=== PATIENT | female | born 1955 | race Caucasian/White ===

== ENCOUNTER 2022-12-05 08:27 | Inpatient (IN) | payer OTHER ==
[~2022-12-05] VITALS: Ht 167.6 cm; Wt 72.6 kg
[~2022-12-05 08:27] MED LIST: BUPIVACAINE /PF 0.25% 30 ML VIAL INJ ONE; CEFAZOLIN 2 GM IVPB PREMIX 50 ML IV ONE; DEXAMETHASONE SOD PHOSPHATE 4 MG/ML VIAL ONE; HYDROmorphone 2 MG/ML VIAL ONE; LR 1,000 ML IV.SOLN IV ONE; MIDAZOLAM HCL 5 MG/ML VIAL (VERSED) IV ONE; NS IRRIG SOLN 1000 ML IR ONE; PROPOFOL 200MG/ 20ML VIAL (DIPRIVAN) IV ONE; ROCURONIUM BROMIDE 10 MG/ML (ZEMURON) ONE; SEVOFLURANE 15 MIN GAS INH ONE; SUCCINYLCHOLINE CHLORIDE 20 MG/ML(QUELICIN) ONE; SUGAMMADEX SODIUM 200 MG/2 ML VIAL IV ONE; ePHEDrine sulfate 50 MG/ML VIAL ONE
[2022-12-05 08:35] VITALS: BP_SYST 141; PULSE 83; RESP 20; TEMP 98.3; O2SAT 98
[2022-12-05] MEDS ORDERED: ONDANSETRON HCL 4 MG/2 ML VIAL IVP ONE (09:00)
[2022-12-05] MEDS ORDERED: fentaNYL CITRATE/PF 100 MCG/2 ML AMP IVP ONE ×2 (09:00→12:00)
[2022-12-05 09:42] LABS: BASOPHILS % (AUTO) 0.3 % (0.0-2.0); EOSINOPHILS % (AUTO) 0.1 % (0.0-4.0); HEMATOCRIT 44.3 % (36-48); HEMOGLOBIN 14.9 g/dL (12.0-16.0); LYMPHOCYTES # (AUTO) 1.9 K/uL (1.0-5.5); LYMPHOCYTES % (AUTO) 13.5 % (20.5-51.5); MEAN CORPUSCULAR HEMOGLOBIN 31 pg (27-31); MEAN CORPUSCULAR HGB CONC 34 % (32-36); MEAN CORPUSCULAR VOLUME 91 fL (79.0-98.0); MONOCYTES # (AUTO) 0.6 K/uL (0.0-1.0); MONOCYTES % (AUTO) 4.3 % (1.7-9.3); NEUTROPHILS # (AUTO) 11.2 K/uL (1.8-7.7); NEUTROPHILS % (AUTO) 81.8 % (40.0-70.0); PLATELET COUNT (AUTO) 272 K/uL (130-430); RED BLOOD CELL COUNT(AUTO) 4.85 MIL/uL (4.2-6.2); RED CELL DISTRIBUTION WIDTH 12.6 % (9.0-15.0); WHITE BLOOD COUNT (AUTO) 13.7 K/uL (4.8-10.8)
[2022-12-05] MEDS ORDERED: NACL 0.9% 1,000 ML IV ONE (10:00)
[2022-12-05 10:01] LABS: ALBUMIN 4.4 g/dL (3.4-4.8); CALCIUM 8.8 mg/dL (8.4-11.0); CREATININE 0.94 mg/dL (0.55-1.30); TOTAL BILIRUBIN 0.8 mg/dL (0.0-1.0); TOTAL PROTEIN, SERUM 8.3 g/dL (6.4-8.3)
[2022-12-05] MEDS ORDERED: KCL 40 mEq in 100 mL (PREMIX) 100 ML IV ONE (11:00)
[2022-12-05] MEDS ORDERED: KCL 20 mEq in 100 mL (PREMIX) 200 ML IV ONE (11:04)
[2022-12-05] MEDS ORDERED: KCL 20 mEq in 100 mL (PREMIX) 100 ML IV ONE ×2 (11:15→13:15)
[2022-12-05] MEDS ORDERED: ZOLPIDEM TARTRATE 5 MG TABLET PO PRN (12:45)
[2022-12-05] MEDS ORDERED: MAGNESIUM SULFATE 50 ML IV PRN (12:45)
[2022-12-05] MEDS ORDERED: ONDANSETRON HCL 4 MG/2 ML VIAL IVP PRN (12:45)
[2022-12-05] MEDS ORDERED: KETOROLAC TROMETHAMINE 15 MG VIAL IVP PRN (12:45)
[2022-12-05] MEDS ORDERED: MUPIROCIN 2% TOPICAL OINTMENT 22 GM NS PRN (12:45)
[2022-12-05] MEDS ORDERED: LORazepam 2 MG/ML VIAL IVP PRN (12:45)
[2022-12-05] MEDS ORDERED: ACETAMINOPHEN 325 MG TABLET PO PRN ×3 (12:45→13:15)
[2022-12-05] MEDS ORDERED: DOCUSATE SODIUM 100 MG CAPSULE PO PRN (12:45)
[2022-12-05] MEDS ORDERED: KETOROLAC TROMETHAMINE 30 MG VIAL ONE (14:19)
[2022-12-05 17:00] VITALS: BP_SYST 158; PULSE 75; RESP 18; TEMP 98.1
[2022-12-05] MEDS ORDERED: METO25TA3 PO (17:36)
[2022-12-05] MEDS ORDERED: NORT75CA PO (17:36)
[2022-12-05] MEDS ORDERED: PANT20TA2 PO (17:36)
[2022-12-05] MEDS ORDERED: LEVO100T PO (17:37)
[2022-12-05] MEDS ORDERED: LINA290C PO (17:37)
[2022-12-05] MEDS: D5NS 1,000 ML IV SCH (18:46)
[2022-12-05 20:03] LABS: BASOPHILS # (AUTO) 0.1 K/uL (0.0-0.2); BASOPHILS % (AUTO) 0.6 % (0.0-2.0); EOSINOPHILS # (AUTO) 0.1 K/uL (0.0-0.4); EOSINOPHILS % (AUTO) 0.9 % (0.0-4.0); HEMATOCRIT 40.2 % (36-48); HEMOGLOBIN 13.4 g/dL (12.0-16.0); LYMPHOCYTES # (AUTO) 3.8 K/uL (1.0-5.5); LYMPHOCYTES % (AUTO) 32.1 % (20.5-51.5); MEAN CORPUSCULAR HEMOGLOBIN 31 pg (27-31); MEAN CORPUSCULAR HGB CONC 33 % (32-36); MEAN CORPUSCULAR VOLUME 92 fL (79.0-98.0); MONOCYTES # (AUTO) 0.7 K/uL (0.0-1.0); MONOCYTES % (AUTO) 6.1 % (1.7-9.3); NEUTROPHILS # (AUTO) 7.2 K/uL (1.8-7.7); NEUTROPHILS % (AUTO) 60.3 % (40.0-70.0); PLATELET COUNT (AUTO) 232 K/uL (130-430); RED BLOOD CELL COUNT(AUTO) 4.37 MIL/uL (4.2-6.2); RED CELL DISTRIBUTION WIDTH 12.8 % (9.0-15.0)
[2022-12-05 20:24] LABS: ALBUMIN 3.7 g/dL (3.4-4.8); CALCIUM 7.7 mg/dL (8.4-11.0); CREATININE 0.85 mg/dL (0.55-1.30); POTASSIUM 3.7 mmol/L (3.5-5.1); TOTAL BILIRUBIN 0.7 mg/dL (0.0-1.0); TOTAL PROTEIN, SERUM 7.2 g/dL (6.4-8.3)
[2022-12-05] MEDS ORDERED: HYDROmorphone 2 MG/ML VIAL ONE (20:43)
[2022-12-05] MEDS ORDERED: MIDAZOLAM HCL 2 MG/2 ML VIAL (VERSED) ONE (20:44)
[2022-12-05] MEDS ORDERED: HEPARIN SODIUM,PORCINE 5,000 UNITS/ML VIAL SUBCUT SCH (21:00)
[2022-12-06] VITALS (18 sets, daily range): BP systolic 102–137; PULSE 83–98; RESP 10–28; TEMP 97–101.1; O2SAT 94–99
[2022-12-06] MEDS ORDERED: NALOXONE HCL 0.4 MG/ML AMP (NARCAN) IVP PRN (01:00)
[2022-12-06] MEDS ORDERED: HYDROmorphone 1 MG/ML INJ. CARTRIDGE ONE (01:08)
[2022-12-06] MEDS ORDERED: ACETAMINOPHEN I.V. 1000 MG 100 ML IV ONE ×2 (01:09→01:15)
[2022-12-06] MEDS: HYDROmorphone 1 MG/ML INJ. CARTRIDGE IVP PRN ×7 (01:11→21:16)
[2022-12-06] MEDS ORDERED: ONDANSETRON HCL 4 MG/2 ML VIAL IVP PRN (01:15)
[2022-12-06] MEDS ORDERED: HYDROmorphone 2 MG/ML VIAL ONE (03:30)
[2022-12-06] MEDS: D5NS 1,000 ML IV SCH ×2 (03:39→14:44)
[2022-12-06 05:08] LABS: BASOPHILS % (AUTO) 0.1 % (0.0-2.0); HEMATOCRIT 37.1 % (36-48); HEMOGLOBIN 12.3 g/dL (12.0-16.0); LYMPHOCYTES # (AUTO) 0.6 K/uL (1.0-5.5); LYMPHOCYTES % (AUTO) 3.8 % (20.5-51.5); MEAN CORPUSCULAR HEMOGLOBIN 31 pg (27-31); MEAN CORPUSCULAR HGB CONC 33 % (32-36); MEAN CORPUSCULAR VOLUME 93 fL (79.0-98.0); MONOCYTES # (AUTO) 1.2 K/uL (0.0-1.0); MONOCYTES % (AUTO) 7.2 % (1.7-9.3); NEUTROPHILS # (AUTO) 14.7 K/uL (1.8-7.7); NEUTROPHILS % (AUTO) 88.9 % (40.0-70.0); PLATELET COUNT (AUTO) 249 K/uL (130-430); RED BLOOD CELL COUNT(AUTO) 3.99 MIL/uL (4.2-6.2); RED CELL DISTRIBUTION WIDTH 12.7 % (9.0-15.0); WHITE BLOOD COUNT (AUTO) 16.5 K/uL (4.8-10.8)
[2022-12-06 05:28] LABS: CALCIUM 7.2 mg/dL (8.4-11.0); CREATININE 1.01 mg/dL (0.55-1.30)
[2022-12-06] MEDS: PIPERACILLIN/TAZO 3.375/DEX-IS 50 ML IV SCH ×3 (10:51→23:06)
[2022-12-06 11:37] LABS: PROTHROMBIN TIME 10.7 SECS (9.5-12.5)
[2022-12-06] MEDS: MORPHINE 4 MG INJ. 4 MG/ML VIAL IVP PRN (16:54)
[2022-12-06] MEDS ORDERED: GASTROGRAFIN 120 ML ONE (18:57)
[2022-12-06] MEDS ORDERED: TPN PERIPHERAL IV SCH ×6 (21:00)
[2022-12-06] MEDS ORDERED: *TPN PER PHARMACY XX PRN (21:00)
[2022-12-06] MEDS ORDERED: TRACE ELEMENTS IV SCH ×6 (21:00)
[2022-12-06] MEDS ORDERED: MAGNESIUM SULFATE IV SCH ×6 (21:00)
[2022-12-06] MEDS ORDERED: MVI IV SCH ×6 (21:00)
[2022-12-06] MEDS ORDERED: [UNRECOGNIZED DRUG - OTHER] IV SCH ×6 (21:00)
[2022-12-07 00:11] VITALS: BP_SYST 121; PULSE 96; RESP 18; TEMP 99.6; O2SAT 99
[2022-12-07] MEDS: D5NS 1,000 ML IV SCH ×2 (01:41→14:45)
[2022-12-07] MEDS: HYDROmorphone 1 MG/ML INJ. CARTRIDGE IVP PRN (01:41)
[2022-12-07 04:49] LABS: BASOPHILS # (AUTO) 0.1 K/uL (0.0-0.2); BASOPHILS % (AUTO) 0.5 % (0.0-2.0); EOSINOPHILS % (AUTO) 0.5 % (0.0-4.0); HEMATOCRIT 32.4 % (36-48); HEMOGLOBIN 10.7 g/dL (12.0-16.0); LYMPHOCYTES # (AUTO) 1.7 K/uL (1.0-5.5); LYMPHOCYTES % (AUTO) 17.4 % (20.5-51.5); MEAN CORPUSCULAR HEMOGLOBIN 31 pg (27-31); MEAN CORPUSCULAR HGB CONC 33 % (32-36); MEAN CORPUSCULAR VOLUME 94 fL (79.0-98.0); MONOCYTES % (AUTO) 9.9 % (1.7-9.3); NEUTROPHILS # (AUTO) 7.1 K/uL (1.8-7.7); NEUTROPHILS % (AUTO) 71.7 % (40.0-70.0); PLATELET COUNT (AUTO) 183 K/uL (130-430); RED BLOOD CELL COUNT(AUTO) 3.44 MIL/uL (4.2-6.2); RED CELL DISTRIBUTION WIDTH 13.2 % (9.0-15.0); WHITE BLOOD COUNT (AUTO) 9.9 K/uL (4.8-10.8)
[2022-12-07 05:09] LABS: ALBUMIN 2.9 g/dL (3.4-4.8); CALCIUM 7.1 mg/dL (8.4-11.0); CREATININE 0.82 mg/dL (0.55-1.30); PHOSPHORUS 2.7 mg/dL (2.7-4.5); POTASSIUM 4.3 mmol/L (3.5-5.1); TOTAL BILIRUBIN 0.8 mg/dL (0.0-1.0); TOTAL PROTEIN, SERUM 6.2 g/dL (6.4-8.3)
[2022-12-07] MEDS: PIPERACILLIN/TAZO 3.375/DEX-IS 50 ML IV SCH ×4 (05:09→22:08)
[2022-12-07] MEDS: MORPHINE 4 MG INJ. 4 MG/ML VIAL IVP PRN ×5 (07:51→22:08)
[2022-12-07 08:00] VITALS: BP_SYST 147; PULSE 96; RESP 18; TEMP 99.2; O2SAT 97
[2022-12-07] MEDS: ENOXAPARIN SODIUM 30 MG/0.3 ML SYRINGE SUBCUT SCH (09:48)
[2022-12-07 12:29] VITALS: BP_SYST 136; PULSE 95; RESP 19; TEMP 99; O2SAT 99
[2022-12-07] MEDS ORDERED: MORPHINE 2 MG/ML INJ. SYRINGE IVP PRN (14:00)
[2022-12-07 16:50] VITALS: BP_SYST 139; PULSE 95; RESP 18; TEMP 99.1; O2SAT 98
[2022-12-07] MEDS ORDERED: HEPARIN IV FLUSH 300 UNITS/3ML SYR IV ONE (19:15)
[2022-12-07 19:30] VITALS: BP_SYST 141; PULSE 92; RESP 18; TEMP 99.1; O2SAT 98
[2022-12-07] MEDS ORDERED: TPN PERIPHERAL IV SCH ×7 (21:00)
[2022-12-07] MEDS ORDERED: MAGNESIUM SULFATE IV SCH ×7 (21:00)
[2022-12-07] MEDS ORDERED: [UNRECOGNIZED DRUG - OTHER] IV SCH ×7 (21:00)
[2022-12-07] MEDS ORDERED: NA PHOS IV SCH ×7 (21:00)
[2022-12-07] MEDS ORDERED: MVI IV SCH ×7 (21:00)
[2022-12-08 00:42] VITALS: BP_SYST 140; PULSE 82; RESP 16; TEMP 98.2; O2SAT 98
[2022-12-08] MEDS: MORPHINE 4 MG INJ. 4 MG/ML VIAL IVP PRN ×6 (01:41→23:06)
[2022-12-08] MEDS: PIPERACILLIN/TAZO 3.375/DEX-IS 50 ML IV SCH ×4 (04:09→22:45)
[2022-12-08] MEDS: D5NS 1,000 ML IV SCH ×3 (04:09→22:45)
[2022-12-08 06:33] LABS: BASOPHILS # (AUTO) 0.1 K/uL (0.0-0.2); BASOPHILS % (AUTO) 0.5 % (0.0-2.0); EOSINOPHILS # (AUTO) 0.2 K/uL (0.0-0.4); EOSINOPHILS % (AUTO) 1.9 % (0.0-4.0); HEMATOCRIT 31.1 % (36-48); HEMOGLOBIN 10.7 g/dL (12.0-16.0); LYMPHOCYTES % (AUTO) 19.2 % (20.5-51.5); MEAN CORPUSCULAR HEMOGLOBIN 32 pg (27-31); MEAN CORPUSCULAR HGB CONC 34 % (32-36); MEAN CORPUSCULAR VOLUME 93 fL (79.0-98.0); MONOCYTES # (AUTO) 0.8 K/uL (0.0-1.0); MONOCYTES % (AUTO) 7.9 % (1.7-9.3); NEUTROPHILS # (AUTO) 7.5 K/uL (1.8-7.7); NEUTROPHILS % (AUTO) 70.5 % (40.0-70.0); PLATELET COUNT (AUTO) 164 K/uL (130-430); RED BLOOD CELL COUNT(AUTO) 3.36 MIL/uL (4.2-6.2); RED CELL DISTRIBUTION WIDTH 12.9 % (9.0-15.0); WHITE BLOOD COUNT (AUTO) 10.6 K/uL (4.8-10.8)
[2022-12-08 06:54] LABS: CALCIUM 7.1 mg/dL (8.4-11.0); CREATININE 0.66 mg/dL (0.55-1.30); PHOSPHORUS 1.9 mg/dL (2.7-4.5); POTASSIUM 3.2 mmol/L (3.5-5.1)
[2022-12-08 08:00] VITALS: BP_SYST 143; PULSE 87; RESP 17; TEMP 97.8; O2SAT 96
[2022-12-08] MEDS: ENOXAPARIN SODIUM 30 MG/0.3 ML SYRINGE SUBCUT SCH (09:19)
[2022-12-08] MEDS ORDERED: POTASSIUM CHLORIDE 40 MEQ in NS 250 ML IV ONE (11:30)
[2022-12-08 12:22] VITALS: BP_SYST 138; PULSE 85; RESP 17; TEMP 98.5; O2SAT 98
[2022-12-08] MEDS: POTASSIUM CHLORIDE 20 mEq in 100 mL (PREMIX) 100 ML x 2 doses IV SCH ×2 (12:45→14:47)
[2022-12-08 16:40] VITALS: BP_SYST 140; PULSE 86; RESP 16; TEMP 98.2; O2SAT 97
[2022-12-08 20:00] VITALS: BP_SYST 132; PULSE 83; RESP 16; TEMP 98.3; O2SAT 96
[2022-12-08] MEDS ORDERED: [UNRECOGNIZED DRUG - OTHER] IV SCH ×9 (21:00)
[2022-12-08] MEDS ORDERED: TPN PERIPHERAL IV SCH ×9 (21:00)
[2022-12-08] MEDS ORDERED: SODIUM CHLORIDE IV SCH ×9 (21:00)
[2022-12-08] MEDS ORDERED: K PHOS IV SCH ×9 (21:00)
[2022-12-08] MEDS: FAT EMULSIONS 250 ML IV SCH (22:23)
[2022-12-09] VITALS: BP_SYST 137; PULSE 81; RESP 16; TEMP 98.2; O2SAT 94
[2022-12-09] MEDS: PIPERACILLIN/TAZO 3.375/DEX-IS 50 ML IV SCH ×4 (05:07→22:15)
[2022-12-09] MEDS: MORPHINE 4 MG INJ. 4 MG/ML VIAL IVP PRN ×4 (05:08→23:03)
[2022-12-09 05:53] LABS: BASOPHILS # (AUTO) 0.1 K/uL (0.0-0.2); EOSINOPHILS # (AUTO) 0.4 K/uL (0.0-0.4); EOSINOPHILS % (AUTO) 5.1 % (0.0-4.0); HEMATOCRIT 30.1 % (36-48); HEMOGLOBIN 10.2 g/dL (12.0-16.0); LYMPHOCYTES # (AUTO) 1.6 K/uL (1.0-5.5); LYMPHOCYTES % (AUTO) 21.8 % (20.5-51.5); MEAN CORPUSCULAR HEMOGLOBIN 31 pg (27-31); MEAN CORPUSCULAR HGB CONC 34 % (32-36); MEAN CORPUSCULAR VOLUME 92 fL (79.0-98.0); MONOCYTES # (AUTO) 0.6 K/uL (0.0-1.0); MONOCYTES % (AUTO) 7.8 % (1.7-9.3); NEUTROPHILS # (AUTO) 4.8 K/uL (1.8-7.7); NEUTROPHILS % (AUTO) 64.3 % (40.0-70.0); PLATELET COUNT (AUTO) 199 K/uL (130-430); RED BLOOD CELL COUNT(AUTO) 3.28 MIL/uL (4.2-6.2); RED CELL DISTRIBUTION WIDTH 12.3 % (9.0-15.0); WHITE BLOOD COUNT (AUTO) 7.5 K/uL (4.8-10.8)
[2022-12-09 06:35] LABS: ALBUMIN 2.5 g/dL (3.4-4.8); CALCIUM 7.1 mg/dL (8.4-11.0); CREATININE 0.66 mg/dL (0.55-1.30); PHOSPHORUS 1.8 mg/dL (2.7-4.5); POTASSIUM 3.1 mmol/L (3.5-5.1); TOTAL BILIRUBIN 0.6 mg/dL (0.0-1.0); TOTAL PROTEIN, SERUM 6.1 g/dL (6.4-8.3)
[2022-12-09 08:00] VITALS: BP_SYST 122; PULSE 77; RESP 17; TEMP 98.1; O2SAT 95
[2022-12-09] MEDS ORDERED: NON-FORMULARY MEDICATION (Linaclotide (Linzess) 290 MCG) PO SCH (09:00)
[2022-12-09] MEDS: METOPROLOL SUCCINATE 25 MG TAB.SR.24H (TOPROL XL) PO SCH (09:34)
[2022-12-09] MEDS: ENOXAPARIN SODIUM 30 MG/0.3 ML SYRINGE SUBCUT SCH (09:35)
[2022-12-09 10:07] VITALS: BP_SYST 122; PULSE 77; O2SAT 95
[2022-12-09] MEDS ORDERED: NORT50CA PO (10:42)
[2022-12-09] MEDS ORDERED: PANTOPRAZOLE SODIUM 40 MG TAB PO ONE (11:30)
[2022-12-09] MEDS: D5NS 1,000 ML IV SCH (11:33)
[2022-12-09 12:00] VITALS: BP_SYST 127; PULSE 70; RESP 18; TEMP 97.7; O2SAT 97
[2022-12-09] MEDS: LIDOCAINE/PRILOCAINE 5 GM CREAM (EMLA) TP SCH ×3 (15:00→20:28)
[2022-12-09] MEDS: POTASSIUM CHLORIDE 20 MEQ TAB.PRT.SR PO PRN (15:33)
[2022-12-09 16:00] VITALS: BP_SYST 135; PULSE 78; RESP 18; TEMP 98; O2SAT 98
[2022-12-09] MEDS ORDERED: BENZOCAINE/MENTHOL 1 EACH LOZENGE MM PRN (19:00)
[2022-12-09 20:00] VITALS: BP_SYST 131; PULSE 68; RESP 18; TEMP 98.5; O2SAT 94
[2022-12-09] MEDS: NORTRIPTYLINE HCL 25 MG CAPSULE PO SCH (20:28)
[2022-12-09] MEDS ORDERED: SODIUM CHLORIDE IV SCH ×10 (21:00)
[2022-12-09] MEDS ORDERED: [UNRECOGNIZED DRUG - OTHER] IV SCH ×10 (21:00)
[2022-12-09] MEDS ORDERED: POTASSIUM CHLORIDE IV SCH ×10 (21:00)
[2022-12-09] MEDS ORDERED: TPN PERIPHERAL IV SCH ×10 (21:00)
[2022-12-09] MEDS ORDERED: POTASSIUM CHLORIDE 20 MEQ TAB.PRT.SR PO ONE (22:00)
[2022-12-09] MEDS: FAT EMULSIONS 250 ML IV SCH (22:19)
[2022-12-10 00:50] VITALS: BP_SYST 131; PULSE 68; RESP 18; TEMP 98.5; O2SAT 94
[2022-12-10 01:00] VITALS: BP_SYST 156; PULSE 76; RESP 18; TEMP 99.1; O2SAT 94
[2022-12-10] MEDS: D5NS 1,000 ML IV SCH ×2 (03:12→17:08)
[2022-12-10] MEDS: PIPERACILLIN/TAZO 3.375/DEX-IS 50 ML IV SCH ×4 (04:49→23:30)
[2022-12-10] MEDS: MORPHINE 4 MG INJ. 4 MG/ML VIAL IVP PRN ×3 (04:49→21:51)
[2022-12-10 06:06] LABS: BASOPHILS % (AUTO) 0.7 % (0.0-2.0); EOSINOPHILS # (AUTO) 0.4 K/uL (0.0-0.4); EOSINOPHILS % (AUTO) 6.2 % (0.0-4.0); HEMATOCRIT 29.8 % (36-48); HEMOGLOBIN 10.1 g/dL (12.0-16.0); LYMPHOCYTES # (AUTO) 1.3 K/uL (1.0-5.5); LYMPHOCYTES % (AUTO) 19.9 % (20.5-51.5); MEAN CORPUSCULAR HEMOGLOBIN 31 pg (27-31); MEAN CORPUSCULAR HGB CONC 34 % (32-36); MEAN CORPUSCULAR VOLUME 92 fL (79.0-98.0); MONOCYTES # (AUTO) 0.7 K/uL (0.0-1.0); MONOCYTES % (AUTO) 10.5 % (1.7-9.3); NEUTROPHILS # (AUTO) 4.2 K/uL (1.8-7.7); NEUTROPHILS % (AUTO) 62.7 % (40.0-70.0); PLATELET COUNT (AUTO) 215 K/uL (130-430); RED BLOOD CELL COUNT(AUTO) 3.25 MIL/uL (4.2-6.2); RED CELL DISTRIBUTION WIDTH 12.4 % (9.0-15.0); WHITE BLOOD COUNT (AUTO) 6.7 K/uL (4.8-10.8)
[2022-12-10] MEDS: LEVOTHYROXINE SODIUM 0.1 MG TABLET PO SCH (06:27)
[2022-12-10 07:07] LABS: CALCIUM 7.3 mg/dL (8.4-11.0); CREATININE 0.57 mg/dL (0.55-1.30); PHOSPHORUS 2.5 mg/dL (2.7-4.5); POTASSIUM 3.2 mmol/L (3.5-5.1)
[2022-12-10 08:17] VITALS: O2SAT 97
[2022-12-10] MEDS: ENOXAPARIN SODIUM 30 MG/0.3 ML SYRINGE SUBCUT SCH (08:33)
[2022-12-10] MEDS: LIDOCAINE/PRILOCAINE 5 GM CREAM (EMLA) TP SCH ×3 (08:34→21:23)
[2022-12-10] MEDS: METOPROLOL SUCCINATE 25 MG TAB.SR.24H (TOPROL XL) PO SCH (08:34)
[2022-12-10] MEDS: PANTOPRAZOLE SODIUM 40 MG TAB PO SCH (08:34)
[2022-12-10] MEDS: LINACLOTIDE 290 MCG PO SCH (09:00)
[2022-12-10] MEDS ORDERED: POTASSIUM CHLORIDE IV SCH ×20 (10:45→21:00)
[2022-12-10] MEDS ORDERED: TPN PERIPHERAL IV SCH ×20 (10:45→21:00)
[2022-12-10] MEDS ORDERED: [UNRECOGNIZED DRUG - OTHER] IV SCH ×20 (10:45→21:00)
[2022-12-10] MEDS ORDERED: SODIUM CHLORIDE IV SCH ×20 (10:45→21:00)
[2022-12-10 11:30] VITALS: BP_SYST 125; PULSE 78; RESP 17; TEMP 98.4; O2SAT 98
[2022-12-10] MEDS: POTASSIUM CHLORIDE 20 MEQ TAB.PRT.SR PO PRN (16:52)
[2022-12-10 16:59] VITALS: BP_SYST 135; PULSE 79; RESP 18; TEMP 97.6; O2SAT 98
[2022-12-10 20:00] VITALS: BP_SYST 147; PULSE 81; RESP 18; TEMP 97.3; O2SAT 97
[2022-12-10] MEDS: FAT EMULSIONS 250 ML IV SCH (21:21)
[2022-12-10] MEDS: NORTRIPTYLINE HCL 25 MG CAPSULE PO SCH (21:21)
[2022-12-11] VITALS: BP_SYST 136; PULSE 76; RESP 18; TEMP 96.7; O2SAT 95
[2022-12-11] MEDS: PIPERACILLIN/TAZO 3.375/DEX-IS 50 ML IV SCH (04:45)
[2022-12-11 06:16] LABS: BASOPHILS # (AUTO) 0.1 K/uL (0.0-0.2); BASOPHILS % (AUTO) 1.1 % (0.0-2.0); EOSINOPHILS # (AUTO) 0.5 K/uL (0.0-0.4); EOSINOPHILS % (AUTO) 7.7 % (0.0-4.0); HEMATOCRIT 30.3 % (36-48); HEMOGLOBIN 10.2 g/dL (12.0-16.0); LYMPHOCYTES # (AUTO) 1.3 K/uL (1.0-5.5); LYMPHOCYTES % (AUTO) 20.1 % (20.5-51.5); MEAN CORPUSCULAR HEMOGLOBIN 31 pg (27-31); MEAN CORPUSCULAR HGB CONC 34 % (32-36); MEAN CORPUSCULAR VOLUME 92 fL (79.0-98.0); MONOCYTES # (AUTO) 0.7 K/uL (0.0-1.0); NEUTROPHILS # (AUTO) 3.8 K/uL (1.8-7.7); NEUTROPHILS % (AUTO) 60.1 % (40.0-70.0); PLATELET COUNT (AUTO) 233 K/uL (130-430); RED BLOOD CELL COUNT(AUTO) 3.29 MIL/uL (4.2-6.2); RED CELL DISTRIBUTION WIDTH 12.5 % (9.0-15.0); WHITE BLOOD COUNT (AUTO) 6.3 K/uL (4.8-10.8)
[2022-12-11 06:40] LABS: CALCIUM 8.8 mg/dL (8.4-11.0); CREATININE 0.62 mg/dL (0.55-1.30); PHOSPHORUS 3.3 mg/dL (2.7-4.5); POTASSIUM 4.1 mmol/L (3.5-5.1)
[2022-12-11 08:00] VITALS: BP_SYST 119; PULSE 72; RESP 18; TEMP 97.7; O2SAT 97
[2022-12-11] MEDS: LINACLOTIDE 290 MCG PO SCH (09:00)
[2022-12-11] MEDS: PANTOPRAZOLE SODIUM 40 MG TAB PO SCH (09:32)
[2022-12-11] MEDS: LEVOTHYROXINE SODIUM 0.1 MG TABLET PO SCH (09:32)
[2022-12-11] MEDS: METOPROLOL SUCCINATE 25 MG TAB.SR.24H (TOPROL XL) PO SCH (09:33)
[2022-12-11] MEDS: ENOXAPARIN SODIUM 30 MG/0.3 ML SYRINGE SUBCUT SCH (09:35)
[2022-12-11] MEDS: LIDOCAINE/PRILOCAINE 5 GM CREAM (EMLA) TP SCH ×2 (09:40→16:08)
[2022-12-11] MEDS ORDERED: levoFLOXacin 500 MG TABLET PO SCH (10:00)
[2022-12-11 10:03] VITALS: BP_SYST 119; PULSE 72; RESP 18; TEMP 97.7; O2SAT 97
[2022-12-11] MEDS: D5NS 1,000 ML IV SCH (13:30)
[2022-12-11 16:37] VITALS: BP_SYST 147; PULSE 74; RESP 18; TEMP 97.4; O2SAT 99
[2022-12-11] MEDS ORDERED: POTASSIUM CHLORIDE IV SCH ×10 (21:00)
[2022-12-11] MEDS ORDERED: SODIUM CHLORIDE IV SCH ×10 (21:00)
[2022-12-11] MEDS ORDERED: TPN PERIPHERAL IV SCH ×10 (21:00)
[2022-12-11] MEDS ORDERED: [UNRECOGNIZED DRUG - OTHER] IV SCH ×10 (21:00)
== END 2022-12-11 17:10 | DRG 853 ==
LOC: SED 08:27 → SMU 12:36 → SIC 23:22 → STU 12-06 16:20 → SMU 12-08 05:48
PROVIDERS: ADMIT General Practice; ATTEND General Practice
PROC: 0DQ80ZZ Repair Small Intestine, Open Approach (ICD-10-PCS; 2022-12-05)
PROC: 0DN80ZZ Release Small Intestine, Open Approach (ICD-10-PCS; principal; 2022-12-05 21:32)
DX: A41.9 Sepsis, unspecified organism (principal); J96.01 Acute respiratory failure with hypoxia; E87.1 Hypo-osmolality and hyponatremia; K56.50 Intestinal adhesions [bands], unspecified as to partial versus complete obstruction; E87.6 Hypokalemia; E66.9 Obesity, unspecified; Z88.5 Allergy status to narcotic agent; Z79.899 Other long term (current) drug therapy; Z90.49 Acquired absence of other specified parts of digestive tract; Z90.710 Acquired absence of both cervix and uterus; Z68.25 Body mass index [BMI] 25.0-25.9, adult
CPT/HCPCS: 36415; 71045; 74250-TC; 76376; 80048; 80053; 83037; 83690; 83735; 84100; 84478; 85025; 85610-TC; 85730-TC; 86886; 86900; 86901; 87081; 93005; 97110-GP; 97116-GP; 97530-GP; 99285; G0378; J0131; J0330; J0610; J0690; J1100; J1170; J1642; J1650; J1885; J1956; J2250; J2270; J2405; J2543; J2704; J3010; J3465; J3475; J3480; J3490; J7120; J7131; Q9963; Q9967